=== PATIENT | male | born 1960 | race Caucasian/White ===

== ENCOUNTER → 2017-10-28 01:08 | Outpatient (CLI) | payer OTHER, SELFPAY ==
[2017-10-28 07:35] LABS: CREATININE 1.04 mg/dL (0.70-1.30)
[2017-10-28] MEDS: Gadoterate meglumine 20 ML VIAL IVP (10:37)
--- NOTE | 2017-10-28 11:10 | DI.REPORT_ITS ---
SYMPTOMS/DIAGNOSIS: RT CN VII DYSFUNCTION, R25.3, FASCICULATIONS RT EYE BRAIN MRI: Without and with contrast enhanced brain MRI was performed. T 2 sagittal, T 2 axial and axial diffusion and T 2 FLAIR axial T 1 axial, T 1 axial 3 mm pre and T 1 coronal 3 mm pre and T 1 coronal post and T 1 axial post and T 1 3 mm axial post and T 1 3 mm coronal pulse sequences were performed. No signal abnormality is demonstrated in the brain. There is no evidence of a hemorrhage or mass and nothing to suggest an infarct. No regions of restricted diffuse are apparent. The ventricles are normal with incidental note made of a cavum vergae. There are no regions of contrast enhancement. As visualized the brain stem appears intact. There is no demonstrated sinus or mastoid air cell pathology. The orbital contents appear normal. SUMMARY: A without and with contrast enhanced brain MRI is within normal limits.
== END ==
PROVIDERS: PCP Emergency Medicine; Visit Provider Psychiatry & Neurology Neurology
DX: G51.8 Other disorders of facial nerve (principal); R25.3 Fasciculation; Z13.89 Encounter for screening for other disorder
CPT/HCPCS: 36415; 70553; 82565

== ENCOUNTER 2018-05-31 02:14 | Outpatient (CLI) | payer OTHER, SELFPAY ==
[2018-05-31 11:20] LABS: Cholesterol 203 mg/dL (50-200); HDL Cholesterol 42 mg/dL (40-60); LDL CHOLESTEROL 139 mg/dL (<100); Triglyceride 101 mg/dL (30-150)
== END 2018-05-31 02:34 ==
PROVIDERS: PCP Emergency Medicine; Visit Provider Emergency Medicine
DX: Z00.00 Encounter for general adult medical examination without abnormal findings (principal); Z12.5 Encounter for screening for malignant neoplasm of prostate; Z13.220 Encounter for screening for lipoid disorders
CPT/HCPCS: 36415; 80061; 83721; 84153

== ENCOUNTER → 2018-12-31 10:22 | Outpatient (BNVA) | payer OTHER, SELFPAY | PROVIDERS: PCP Emergency Medicine; Referring Provider Emergency Medicine; Visit Provider Physical Therapy Assistant | DX: Z12.11 Encounter for screening for malignant neoplasm of colon (principal); Z86.010 Personal history of colon polyps ==

== ENCOUNTER 2019-01-24 12:07 | Day surgery (SDC) | payer OTHER, SELFPAY ==
--- NOTE | 2019-01-24 06:56 | W.UPDATEHP ---
Date of service: 01/24/19 Time of Service: 12:07 Updated H&P Refer to Most Recent Clinic Note/H&P Dated: 12/31/18 H&P was reviewed,patient examined No change has occured in patient's condition since last H&P completed
--- NOTE | 2019-01-24 06:56 | W.COLOREPORT ---
Date of service: 01/24/19 Time of Service: 12:55 Colonoscopy Report Date of procedure: 01/24/19 Pre-op diagnosis general: Hx of colon polyps Post-op diagnosis procedure note: same (and polyps, diverticulosis) Procedure: Colonoscopy with polypectomy Surgeon: Lexie Iverson Anesthesia proc note operative: other (General/ ASA 2/Sd Suarez, KATHLEEN) Estimated blood loss (mL): 5 Pathology: other (Ascending polyp, transverse polyp x2, rectal polyp) Complications: None Disposition: same day Indications: The patient is here for Colonoscopy pre-op. His last screening was in 2013 and was remarkable for tubular adenoma x 2. He has no family history of colon cancer. He has not had any bowel habit changes. -Discussed colonoscopy bowel prep as well as the procedure. Discussed possible complications of the procedure to include bleeding, pain, perforation, missed small lesion/polyp, sore throat, aspiration and adverse reaction to the medications. Questions were answered to patient?s satisfaction. No guarantees were implied or given. Prep: Miralax/Dulcolax Procedure Start Time: 12:55 Procedure End Time: 13:21 Retraction Time: 23 minutes Findings: 4 small < 10 mm polyps removed with cold forceps Mild dievrticulosis noted as well Procedure Description: After informed consent was obtained the patient was taken to the procedure room and placed in a left decubitous position. Monitors were applied and a time out was done. The patients name, date of , procedure, allergies to medications and metal in their body was reviewed. The patient was then sedated. Once sedated and comfortable a rectal exam was done. External exam was normal. Internal exam revealed a normal sphincter tone and no palpable masses. The prostate felt smooth and normal in size. The scope was then introduced and retro-flexed. No internal hemorrhoids, masses or polyps were identified on retro-felexion. The scope was then advanced to the cecum without difficulty. The TI and appendiceal orifice were identified. The prep was adequate. The scope was then slowly retracted over 23 minutes back into the rectum. Polyps were removed with cold forceps in the ascending colon x1, transverse colon x2 and rectum x1. There was mild dievrticulosis noted of the descending and sigmoid colon. The scope was removed and the patient was woken up and taken back to Same day surgery in stable condition. The patient tolerated the procedure well and there were no immediate complications. Follow up: The patient should follow up in 3-5 years unless they develop changes in bowel habits or other new gastrointestinal complaints.
--- NOTE | 2019-01-24 06:57 | W.PM.DSUDISC ---
Discharge Plan Disposition Patient Disposition: HOME Condition: Good Discharge Details Reason For Visit: Colonoscopy / Hx of polyps Attending Provider: Lexie Iverson Primary Care Provider: Luan Clark Home Meds and New Rx's Prescriptions: Continued lorazepam [Ativan] 1 mg tablet 1 mg PO HS PRN (Reason: sleep) Qty: 90 RF: 3 calcium-vitamin D3-vitamin K [Viactiv] 1 EACH tablet,chewable 1 ea PO BID RF: 0 Fiber Gummies (with chromium) 1 EACH tablet,chewable 2 ea PO DAILY RF: 0 multivitamin 1 EACH capsule 1 ea PO DAILY RF: 0 Ibuprofen [Motrin Ib] 200 MG tablet 600 mg PO Q6H 5 Days Qty: 60 RF: 0 meloxicam 15 MG tablet 15 mg PO DAILY PRNRF: 0 acetaminophen [Tylenol Extra Strength] 500 MG tablet 1,000 mg PO DAILY PRNRF: 0 Discontinued polyethylene glycol 3350 17 gram/dose powder 238 g PO ONCE Qty: 238 RF: 0 bisacodyl [Dulcolax (bisacodyl)] 5 mg tablet,delayed release (DR/EC) 5 mg PO ONCE Qty: 4 RF: 0 Discharge Instructions Instructions: Colonoscopy (DC), Colorectal Polyps (DC) Additional Instructions: Findings: 4 polyps and mild diverticulosis Follow up: 3-5 years Please call if you develop: fevers >101.5 Nausea or Vomiting Abdominal pain that is not transient DAY SURGERY UNIT POST ENDOSCOPY INSTRUCTIONS 1. Because there will be medication in your system for the next 24 hours, you may feel a little sleepy. Your coordination will be affected. Therefore: a. Do not drive or operate dangerous equipment for 24 hours. b. Do not drink alcohol beverages for 24 hours (not even beer). c. Plan to go home and rest for the day. 2. Generally there are no restrictions on your activity after a day or so has gone by, but you may feel a bit fatigued for a few days. 3 After you arrive home you may have a light meal and return to a normal diet as you can tolerate it without feeling sick to your stomach. 4. After surgery, you may feel pain or discomfort. This should be only transient, but if it persists please contact your doctor. 5. If there are any questions regarding the findings of your procedure, please feel free to contact your doctor. 6. If you are unable to contact your doctor with a problem, contact the hospital at [phone]. 4. Continue all your regular medications unless directed otherwise. I understand the above instructions and have no questions. Signature of Patient or Responsible Adult Escort Date/Time Name of Responsible Adult Escort Signature of Nurse Date/Time Activity:: Activity as Tolerated Diet:: High Fiebr diet Discharge Orders Discharge Orders: Discharge Order (Routine); Ordered 01/24/19 Ordered By: Lexie Iverson DS: Diagnosis Discharge Diagnosis (1) Hx of colonoscopy: Status: Chronic (2) Colorectal polyps: Status: Acute
--- NOTE | 2019-01-24 12:07 | HPE_ITS ---
Date of service: 01/24/19 Time of Service: 12:07 Updated H&P Refer to Most Recent Clinic Note/H&P Dated: 12/31/18 H&P was reviewed,patient examined No change has occured in patient's condition since last H&P completed cc: Dictated by: JEANNINE MOSLEY MD Dictated: 01/24/19Time: 655 <Electronically signed by Lexie Mosley M.D.> Date: 03/26/18 120 Date: Date: Transcribed Date: 01/24/19 Transcribed Time: 655By: ROMELIA
[2019-01-24 12:32] VITALS: BP 124/93; PULSE 98; RESP 18; TEMP 35.7; O2SAT 94
[2019-01-24] MEDS: Lactated Ringers 1,000 ML 80 ML IV (12:40)
--- NOTE | 2019-01-24 13:07 | BOWEL_PTH ---
PATIENT: Esau Quiros LOC: [facility] U#:[id number] AGE/SX: 58/M ROOM: RE01/24/[address]: Lexie Iverson MD : [id number] BED: DIS: 01/24/2019 SPEC #: [id number] RECD: 01/24/19 18:27 STATUS: MP RE #: [id number] ISAMAR: 01/24/19 13:[address]: Lexie Iverson DEPT: Surgical Specimen RECD BY: Bia Aguirre ENTERED: 01/24/19 18:28 SP TYPE: Bowel OTHR DR: Luan Clark DO Tissues: 1 - BIOPSY BOWEL 2 - BIOPSY BOWEL 3 - BIOPSY BOWEL Procedures: GROSS AND MICRO LEVEL 4 Comments: [id number]
[2019-01-24 14:00] VITALS: BP 119/81; PULSE 84; RESP 16; TEMP 36.2; O2SAT 96
== END 2019-01-24 14:55 | disposition home or self-care (01) ==
LOC: SUR 12:07
PROVIDERS: PCP Emergency Medicine; Visit Provider Surgery
PROC: 0DJD8ZZ Inspection of Lower Intestinal Tract, Via Natural or Artificial Opening Endoscopic (ICD-10-PCS; CPT 45378; principal; 2019-01-24 12:15)
DX: Z12.11 Encounter for screening for malignant neoplasm of colon (principal); Z86.010 Personal history of colon polyps; K57.30 Diverticulosis of large intestine without perforation or abscess without bleeding; D12.2 Benign neoplasm of ascending colon; D12.3 Benign neoplasm of transverse colon; K63.89 Other specified diseases of intestine; I10 Essential (primary) hypertension
CPT/HCPCS: 45380; 88305; J2250; J3010

== ENCOUNTER 2021-08-26 03:53 | Outpatient (CLI) | payer OTHER, SELFPAY ==
[2021-08-26 15:31] LABS: ALT 42 U/L (16-63); AST 29 U/L (15-37); Alkaline Phosphatase 100 U/L (46-116); Anion Gap 8.3 mmol/L (3-11); BUN 14 mg/dL (7-18); Bilirubin, Total 0.6 mg/dL (0.2-1.0); CO2 28.7 mmol/L (21.0-32.0); Calcium 8.4 mg/dL (8.5-10.1); Calculated LDL 104 mg/dL (<100); Chloride 104 mmol/L (98-107); Cholesterol 182 mg/dL (<200); Glucose 108 mg/dL (74-106); HDL Cholesterol 39 mg/dL (40-60); Potassium 3.6 mmol/L (3.5-5.1); Sodium 141 mmol/L (136-145); Total Protein 7.6 g/dL (6.4-8.2); Triglyceride 198 mg/dL (<150)
== END 2021-08-26 03:54 | disposition home or self-care (01) ==
PROVIDERS: PCP Nurse Practitioner Family; Visit Provider Nurse Practitioner Family
DX: I10 Essential (primary) hypertension (principal); E78.6 Lipoprotein deficiency
CPT/HCPCS: 36415; 80053; 80061

== ENCOUNTER → 2021-09-25 13:56 | Outpatient (BNVA) | payer OTHER, SELFPAY | PROVIDERS: PCP Nurse Practitioner Family; Referring Provider Nurse Practitioner Family; Visit Provider Surgery | DX: D17.9 Benign lipomatous neoplasm, unspecified (principal) | CPT/HCPCS: 99214 ==

== ENCOUNTER 2021-10-29 02:55 | Outpatient (CLI) | payer OTHER, SELFPAY ==
[2021-10-29 12:50] LABS: Source Nasal/Nares
[2021-10-29 15:19] LABS: COVID-19 PCR Negative (Negative)
== END 2021-10-29 02:56 | disposition home or self-care (01) ==
LOC: LBO 02:55
PROVIDERS: PCP Nurse Practitioner Family; Visit Provider Surgery
DX: Z01.818 Encounter for other preprocedural examination (principal); Z20.822 Contact with and (suspected) exposure to COVID-19
CPT/HCPCS: 87635

== ENCOUNTER 2021-11-01 07:18 | Day surgery (SDC) | payer OTHER, SELFPAY ==
--- NOTE | 2021-11-01 05:29 | HPE_ITS ---
Date of service: 11/01/21 Time of Service: 08:53 Assessment and Plan Assessment and plan (1) Lipoma: Status: Acute Assessment and plan: Proceed with excision of back lipoma History of Present Illness History of Present Illness Chief Complaint: lump on his back Narrative: I was able to see Boubacar in the office today with a chief complaint of a mass on his back.? He says it is the same in character to a lipoma that he had previously excised several years ago.? His first noticed this several months ago.? It has grown a little bit in size, but is not tender, and has not caused him any other problems. Review of Systems Constitutional Constitutional: Reports system reviewed and no additional complaints, except as documented Cardiovascular Cardiovascular: Reports system reviewed and no additional complaints, except as documented Respiratory Respiratory: Reports system reviewed and no additional complaints, except as documented Gastrointestinal Gastrointestinal: Reports system reviewed and no additional complaints, except as documented Musculoskeletal Musculoskeletal: Reports system reviewed and no additional complaints, except as documented Neurologic Neurologic: Reports system reviewed and no additional complaints, except as documented Hematologic/Lymphatic Hematologic/Lymphatic: Reports system reviewed and no additional complaints, except as documented PFSH All Active Problems History of tobacco use (Chronic) Quit 2005 Low HDL (under 40) (Chronic 12/06/13) Tubular adenoma of colon (Chronic) 11/07/13 X 2 Hx of colonoscopy (Chronic ~01/24/19) 01/18 - tubular adenoma x3 2013-Tubular adenoma Colorectal polyps (Acute) Essential hypertension (Acute 03/08/13) Lipoma (Acute) Insomnia (Acute) Obesity (BMI 30.0-34.9) (Acute) Medical History History of tobacco use Hx of essential hypertension Surgical History History of skin cancer removed from behind left ear Hx of sebaceous cyst Excision x4 S/P right knee arthroscopy Family History Mother Alcohol abuse Depression Father Diabetes Essential hypertension Neoplasm COLON Alcohol abuse Brother Diabetes Essential hypertension Grandfather Heart disease ASHD Grandfather Heart disease Grandmother Neoplasm LUNG Grandmother Neoplasm BREAST Social History Smoking/Tobacco Use Status: Former Tobacco Use tobacco type: smokeless tobacco Quit Date: 04/30/05 Tobacco: How many years used: 14 Second Hand Exposure: Yes Smoking risk assessment performed?: Yes Alcohol Intake: current Alcohol Intake frequency: a few times a week Alcohol type: beer Details: 2-3 times per week Drug use: Never Substance use type: does not use Caregiver/Support person: No Household members: spouse Housing: house Communication Needs: Corrective Lenses Do you need help understanding health information?: Rarely 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 [employer] Pets and animals: Yes Pets and animals: dog(s) Sexually active: Yes Do you think of yourself as: straight/heterosexual Current gender identity: male What is your relationship status?: How often do you talk on the phone with friends or family?: three or more times per week How often do you get together with friends or relatives?: once per week How often do you attend voodoo or holiness services?: 4 or more times per year Do you belong to any clubs or organized social groups?: yes Panel score (0-1 are the most socially isolated patients): 4 What type of physical activity do you participate in: walking and other Details: [place] bike Duration: 30-45 minutes/day Frequency: 3-4 times per week Kathy/Yazidism: Confucianism Special kathy needs: No Seatbelt use: always Helmet use: Yes Helmet use: always Drive intox or ride w/intox wrecking car driver: No Do you feel safe at home: Yes Do you feel safe in your relationship?: Yes Victim of physical abuse: No Victim of emotional abuse: No Victim of sexual abuse: No Would you like helpful sources: No Meds Allergies and Home Medications Allergies Allergy/AdvReac Type Severity Reaction Status Date / Time No Known Allergies Allergy Verified 10/31/21 12:33 Home Medications Medication Instructions Recorded Confirmed Type multivitamin 1 ea PO DAILY 11/07/13 11/01/21 History acetaminophen 500 mg tablet 1,000 mg PO DAILY PRN 04/09/17 11/01/21 History (Tylenol Extra Strength) Ibuprofen [Motrin Ib] 600 mg PO Q6H 5 days #60 tabs 09/20/17 11/01/21 Rx meloxicam 15 mg tablet 15 mg PO DAILY PRN joint pain #30 01/06/20 11/01/21 Rx tabs lorazepam 1 mg tablet (Ativan) 1 mg PO HS PRN sleep #90 tabs 08/23/21 11/01/21 Rx amlodipine 10 mg tablet 10 mg PO HS 10/31/21 11/01/21 History Exam Const General: cooperative, healthy appearing and comfortable Orientation: awake and oriented x3 Eyes General: appearance normal, both eyes and all related structures Conjunctivae: conjunctivae normal Sclera: sclerae normal Resp Effort & Inspection: normal respiratory effort and able to speak in complete sentences Cardio Jugular venous pressure: no JVD Rate: regular rate GI Inspection: non-distended Palpation: soft, no guarding, no hernias and nontender Auscultation: normal bowel sounds Skin General skin exam: normal turgor Neuro General: patient alert, patient awake and patient oriented x3 Cognition: normal cognition Extrem Right lower extremity: no edema Left lower extremity: no edema
--- NOTE | 2021-11-01 05:30 | W.PM.DSUDISC ---
Discharge Plan Disposition Patient Disposition: HOME Condition: Good Discharge Details Reason For Visit: excision of back epidermal inclusion cyst Attending Provider: Ryder Gamino Primary Care Provider: Tano Jo Home Meds and New Rx's Prescriptions: Continued meloxicam 15 mg tablet 15 mg PO DAILY PRN (Reason: joint pain) Qty: 30 4RF lorazepam [Ativan] 1 mg tablet 1 mg PO HS PRN (Reason: sleep) Qty: 90 3RF multivitamin 1 EACH capsule 1 ea PO DAILY Ibuprofen [Motrin Ib] 200 MG tablet 600 mg PO Q6H 5 Days Qty: 60 0RF amlodipine 10 mg tablet 10 mg PO HS acetaminophen [Tylenol Extra Strength] 500 MG tablet 1,000 mg PO DAILY PRN Discharge Instructions Instructions: Epidermal Inclusion Cysts (GEN) Additional Instructions: 1. Resume all of your medications. 2. Okay to use tylenol and ibuprofen over the counter as needed. 3. Leave bandage in place for 24 hours, then remove. 4. Shower with warm soapy water. Pat dry. Use a bandaid if needed to protect your clothing. 5. No soaking or tub baths until I see you in the office. 6. No heavy lifting until I see you in the office. 7.Call the office (or go directly to the emergency room after hours) if you notice any of the following: Develop chills (warm to touch), or if you have a thermometer and your temperature is above 101 Difficulty breathing or difficultly swallowing Persistent vomiting Any bleeding ? exceeding one tablespoon 8. Call your physician if the site where your intravenous was started becomes red, swollen, painful, and warm to touch. Referrals: Ryder Gamino MD [ [facility] STAFF PHYSICIAN] - Activity:: Activity as Tolerated Remove Dressings/Wound Care:: 24 hours Shower/Bathe:: 24 hours Diet:: As Tolerated DS: Diagnosis Discharge Diagnosis (1) Epidermal inclusion cyst: Status: Acute Asessment and Plan: Excision and linear closure of back epidermal inclusion cyst
--- NOTE | 2021-11-01 05:52 | W.PM.OP ---
Date of service: 11/01/21 Time of Service: 10:11 Operative Note Operative Note DATE OF PROCEDURE: 11/01/21 PRE-OP DIAGNOSIS: Lipoma POST-OP DIAGNOSIS: other (Epidermal inclusion cyst) PROCEDURE: excision of epidermal inclusion cyst from back SURGEON: Ryder Gamino Refer to Anesthesia Record ESTIMATED BLOOD LOSS: 10 PATHOLOGY: none sent COMPLICATIONS: None Patient was transported to: same day Patient's condition: stable Indications: Boubacar has a chief complaint of a mass on his back.? He says it is the same in character to a lipoma that he had previously excised several years ago.? His first noticed this several months ago.? It has grown a little bit in size, but is not tender, and has not caused him any other problems. Procedure Description: I began by prepping and draping the lump on his back. Next, using sterile technique, I administered local anesthetic with lidocaine to establish a generous field block. I incised the skin overlying the mass with a 15 blade scalpel. I dissected down through all layers of the skin using sharp technique. Gentle pressure was used to assist with hemostasis. The covering appeared consistent with an epidermal inclusion cyst. I used sharp technique for circumferential dissection around the mass and delivered. Next, I held some gentle pressure to assist with hemostasis. I then carefully examined the wound. It was clean, and there was no signs of bleeding. I gently irrigated the surgical site and approximated the the skin with interrupted Prolene stitches. The final incision site was approximately 3 cm long by 0.5 cm deep
[2021-11-01 07:38] VITALS: BP 130/95; PULSE 74; RESP 16; TEMP 36.6; O2SAT 99
--- NOTE | 2021-11-01 08:08 | W.ANESPRE ---
General Info Date of Service Date Performed: 11/01/21 Height: 5 ft 8 in Weight: 97.069 kg Body Mass Index (BMI): 32.5 Surgical Procedure: Operation Date: 11/01/21 09:10 Proposed Procedure Side Surgeon p Excision Lipoma Back Right Ryder Gamino MD Meds Allergies and Home Medications Allergies Allergy/AdvReac Type Severity Reaction Status Date / Time No Known Allergies Allergy Verified 10/31/21 12:33 Home Medication Medication Instructions Recorded multivitamin 1 ea PO DAILY 11/07/13 acetaminophen 500 mg tablet 1,000 mg PO DAILY PRN 04/09/17 (Tylenol Extra Strength) Ibuprofen [Motrin Ib] 600 mg PO Q6H 5 days #60 tabs 09/20/17 meloxicam 15 mg tablet 15 mg PO DAILY PRN joint pain #30 01/06/20 tabs lorazepam 1 mg tablet (Ativan) 1 mg PO HS PRN sleep #90 tabs 08/23/21 amlodipine 10 mg tablet 10 mg PO HS 10/31/21 Current Visit Medications: Current Medications Generic Name Dose Route Start Last Admin Trade Name Micq PRN Reason Stop Dose Admin Acetaminophen 1,000 mg 11/01/21 06:00 Acetaminophen 500 Mg Tab PO 11/01/21 16:00 PREOP MING Celecoxib 200 mg 11/01/21 06:00 Celecoxib 200 Mg Cap PO 11/01/21 16:00 PREOP MING Gabapentin 300 mg 11/01/21 06:00 Gabapentin 300 Mg Cap PO 11/01/21 16:00 PREOP MING Ringer's Solution 1,000 mls @ 80 mls/hr 11/01/21 06:00 IV 11/01/21 16:00 INFUSION [facility] Cefazolin Sodium/Dextrose 2 gm in 50 mls @ 100 mls/hr 11/01/21 06:00 Ancef Duplex IVPB 11/01/21 16:00 PREOP MING IV Miscellaneous Supplies 1 each 11/01/21 06:00 Iv Access IV 11/01/21 16:00 DIRECTED MING Sodium Chloride 0 ml 11/01/21 06:00 Normal Saline Flush 10 Ml Syr IV 11/01/21 16:00 PRN PRN Sodium Chloride 0 ml 11/01/21 06:00 Normal Saline 10 Ml Vial IJ 11/01/21 16:00 DIRECTED PRN Sterile Water 0 ml 11/01/21 06:00 Water,Injection,Sterile 10 Ml Vial IJ 11/01/21 16:00 DIRECTED PRN PFSH Active Problems Active Problems: Problem Status Onset Code History of tobacco use Z87.891 Low HDL (under 40) 12/06/13 E78.6 Tubular adenoma of colon D12.6 Hx of colonoscopy ~01/24/19 Z98.890 Colorectal polyps K63.5 Essential hypertension 03/08/13 I10 Lipoma D17.9 Insomnia G47.00 Obesity (BMI 30.0-34.9) E66.9 Medical History Medical History History of tobacco use Hx of essential hypertension Surgical History Surgical History History of skin cancer removed from behind left ear Hx of sebaceous cyst Excision x4 S/P right knee arthroscopy Tobacco Smoking/Tobacco Use Status: Former Tobacco Use Passive smoking exposure: Yes Second hand exposure: Yes Alcohol Alcohol Intake: current Alcohol intake frequency: a few times a week Alcohol type: beer Details: 2-3 times per week Substance Use Substance use: Never Substance use type: does not use Vital Signs and Lab Results Vital Signs Most Recent Vital Signs in EMR: Most Recent Vital Signs Temp Pulse Resp BP Pulse Ox 36.6 C 74 16 130/95 H 99 11/01/21 07:38 11/01/21 07:38 11/01/21 07:38 11/01/21 07:38 11/01/21 07:38 Lab Results Blood Type / Crossmatch: No Data to Display Complete Blood Count: No Data to Display Complete Metabolic Panel: No Data to Display Liver Function Panel: No Data to Display Coagulation Panel: No Data to Display Cardiac Panel: No Data to Display Arterial Blood Gas: No Data to Display Venous Blood Gas: No Data to Display Pancreas Panel: No Data to Display Thyroid Panel: No Data to Display Infectious Disease: Coronavirus (COVID-19)(PCR) Negative (Negative) 10/29/21 07:56 Coronavirus 2019 Source Nasal/Nares 10/29/21 07:56 Blood Cultures: No Data to Display Toxicology Panel: No Data to Display Anesthesia Assessment and Plan Anesthesia History Personal History: No History of Anesthesia Complications Family History: No Family History of Anesthesia Complications Exercise Tolerance Exercise Tolerance: Metabolic Equivalents>4 Pertinent Negatives Pertinent Negatives: No Symptoms of GERD (Well controlled), No Major Cardiovascular Symptoms or Complaints, No Major Pulmonary Symptoms or Complaints and No History of CVA/TIA Cardiac & Pulmonary Exam Cardiac Exam: Normal S1/S2 Heart Sounds Pulmonary Exam: Clear Bilateral Breath Sounds Implantable Cardiac Device Does patient have a Pacemaker or an ICD?: No Airway Exam Known Difficult Airway: No Mallampati Class: 2 Mouth Opening: Narrow (< 3cm) Thyromental Distance: Greater than 3 cm Neck Range of Motion: Full ROM Neck Circumference: Normal Teeth Condition: Normal Dentition ASA Classification ASA Score: ASA 2 Emergency Case?: No NPO Status NPO Status: NPO Clears >2 hours, Solids >8 hours Anesthesia Plan Resuscitation Status: Full Code Anesthesia Technique: General Anesthesia Airway Planned: Natural Airway Monitors Used: Standard Monitors
[2021-11-01] MEDS: Gabapentin 300 MG CAP PO (08:24)
[2021-11-01] MEDS: Celecoxib 200 MG CAP PO (08:24)
[2021-11-01] MEDS: Lactated Ringers 1,000 ML 80 ML IV (08:24)
[2021-11-01] MEDS: Acetaminophen 500 MG TAB 1000 MG PO (08:24)
[2021-11-01] MEDS: Lidocaine 1% Multi-Dose W/EPI 1/100,000 50 ML VIAL (08:51)
[2021-11-01 09:26] VITALS: BMI 32.5
[2021-11-01] MEDS: ceFAZolin 2 GM/50 ML BAG IVPB (09:47)
[2021-11-01 10:10] VITALS: BP 115/79; PULSE 80; RESP 14; TEMP 36.1; O2SAT 95
--- NOTE | 2021-11-01 10:29 | DSE_ITS ---
DS: Diagnosis Discharge Diagnosis (1) Epidermal inclusion cyst: Status: Acute Discharge Plan Disposition Patient Disposition: HOME Condition: Good Discharge Details Reason For Visit: excision of back epidermal inclusion cyst Attending Provider: Ryder Gamino Primary Care Provider: Tano Jo Home Meds and New Rx's Prescriptions: Continued meloxicam 15 mg tablet 15 mg PO DAILY PRN (Reason: joint pain) Qty: 30 4RF lorazepam [Ativan] 1 mg tablet 1 mg PO HS PRN (Reason: sleep) Qty: 90 3RF multivitamin 1 EACH capsule 1 ea PO DAILY Ibuprofen [Motrin Ib] 200 MG tablet 600 mg PO Q6H 5 Days Qty: 60 0RF amlodipine 10 mg tablet 10 mg PO HS acetaminophen [Tylenol Extra Strength] 500 MG tablet 1,000 mg PO DAILY PRN Discharge Instructions Instructions: Epidermal Inclusion Cysts (GEN) Additional Instructions: 1. Resume all of your medications. 2. Okay to use tylenol and ibuprofen over the counter as needed. 3. Leave bandage in place for 24 hours, then remove. 4. Shower with warm soapy water. Pat dry. Use a bandaid if needed to protect your clothing. 5. No soaking or tub baths until I see you in the office. 6. No heavy lifting until I see you in the office. 7.Call the office (or go directly to the emergency room after hours) if you notice any of the following: Develop chills (warm to touch), or if you have a thermometer and your temperature is above 101 Difficulty breathing or difficultly swallowing Persistent vomiting Any bleeding ? exceeding one tablespoon 8. Call your physician if the site where your intravenous was started becomes red, swollen, painful, and warm to touch. Referrals: Ryder Gamino MD [ [facility] STAFF PHYSICIAN] - Activity:: Activity as Tolerated Remove Dressings/Wound Care:: 24 hours Shower/Bathe:: 24 hours Diet:: As Tolerated Discharge Orders Discharge Orders: Discharge Order (Routine); Ordered 11/01/21 Ordered By: Ryder Gamino DS: Data Vitals/I&O Vitals and I&O: Vital Signs Temperature 97.0 F L 11/01/21 10:14 Pulse 80 11/01/21 10:14 Pulse Rhythm Regular 11/01/21 07:38 Respiratory Rate 14 11/01/21 10:14 Blood Pressure 115/79 11/01/21 10:14 Pulse Oximetry 95 11/01/21 10:14 Oxygen Delivery Method Room Air 11/01/21 10:14 Oxygen Flow Rate 0 11/01/21 07:38 Pain Level 0 11/01/21 10:14 Intake & Output 10/31/21 10/31/21 11/01/21 11:59 23:59 11:59 Intake Total 300 / 300 Balance 300 / 300 Weight 214 lb 214 lb Intake: IV 300 / 300 Other: Emesis Description None PFSH All Active Problems (Updated 11/01/21 @ 10:10 by Ryder Gamino MD) Epidermal inclusion cyst (Acute) History of tobacco use (Chronic) Quit 2005 Low HDL (under 40) (Chronic 12/06/13) Tubular adenoma of colon (Chronic) 11/07/13 X 2 Hx of colonoscopy (Chronic ~01/24/19) 01/18 - tubular adenoma x3 2013-Tubular adenoma Colorectal polyps (Acute) Essential hypertension (Acute 03/08/13) Lipoma (Acute) Insomnia (Acute) Obesity (BMI 30.0-34.9) (Acute) Medical History History of tobacco use Hx of essential hypertension Surgical History History of skin cancer removed from behind left ear Hx of sebaceous cyst Excision x4 S/P right knee arthroscopy Family History Mother Alcohol abuse Depression Father Diabetes Essential hypertension Neoplasm COLON Alcohol abuse Brother Diabetes Essential hypertension Grandfather Heart disease ASHD Grandfather Heart disease Grandmother Neoplasm LUNG Grandmother Neoplasm BREAST Social History Smoking/Tobacco Use Status: Former Tobacco Use tobacco type: smokeless tobacco Quit Date: 04/30/05 Tobacco: How many years used: 14 Second Hand Exposure: Yes Smoking risk assessment performed?: Yes Alcohol Intake: current Alcohol Intake frequency: a few times a week Alcohol type: beer Details: 2-3 times per week Drug use: Never Substance use type: does not use Caregiver/Support person: No Household members: spouse Housing: house Communication Needs: Corrective Lenses Do you need help understanding health information?: Rarely 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 [employer] Pets and animals: Yes Pets and animals: dog(s) Sexually active: Yes Do you think of yourself as: straight/heterosexual Current gender identity: male What is your relationship status?: How often do you talk on the phone with friends or family?: three or more times per week How often do you get together with friends or relatives?: once per week How often do you attend hindu or tenriism services?: 4 or more times per year Do you belong to any clubs or organized social groups?: yes Panel score (0-1 are the most socially isolated patients): 4 What type of physical activity do you participate in: walking and other Details: [place] bike Duration: 30-45 minutes/day Frequency: 3-4 times per week Kathy/Confucianist: Taoist Special kathy needs: No Seatbelt use: always Helmet use: Yes Helmet use: always Drive intox or ride w/intox local bulk driver: No Do you feel safe at home: Yes Do you feel safe in your relationship?: Yes Victim of physical abuse: No Victim of emotional abuse: No Victim of sexual abuse: No Would you like helpful sources: No
[2021-11-01 10:40] VITALS: BP 126/89; PULSE 67; RESP 14; TEMP 36; O2SAT 97
--- NOTE | 2021-11-01 11:16 | W.ANESPOSTOP ---
Postoperative Evaluation Date, Time and Location Date Performed: 11/01/21 Time Performed: 10:14 Patient Location: Day Surgery Unit Vital Signs Most Recent Imported Vital Signs: Most Recent Vital Signs Temp Pulse Resp BP Pulse Ox 36.1 C L 80 14 115/79 95 11/01/21 10:14 11/01/21 10:14 11/01/21 10:14 11/01/21 10:14 11/01/21 10:14 Pain Score Most Recent Pain Score: Most Recent Pain Score Pain Level 0 11/01/21 10:14 Assessment Mental Status: Awake (Alert & Oriented to Patient Baseline) Airway and Respiratory Function: Patent airway with normal (patient baseline) respiratory exam Cardiovascular Function: Hemodynamically Stable Hydration Status: Adequately Hydrated Nausea & Vomiting: No Nausea or Vomiting Pain: Pt. Denies Any Pain Peripheral Nerve Block: Patient did not receive a nerve block
== END 2021-11-01 12:00 | disposition home or self-care (01) ==
PROVIDERS: PCP Nurse Practitioner Family; Visit Provider Surgery
PROC: (CPT 11403; principal; 2021-11-01 09:00)
DX: L72.0 Epidermal cyst (principal); I10 Essential (primary) hypertension
CPT/HCPCS: 11403; J0690; J2704

== ENCOUNTER → 2021-11-11 08:26 | Outpatient (BNVA) | payer OTHER, SELFPAY | PROVIDERS: PCP Nurse Practitioner Family; Referring Provider Nurse Practitioner Family; Visit Provider Surgery | DX: L72.0 Epidermal cyst; Z48.02 Encounter for removal of sutures ==

== ENCOUNTER 2022-09-03 02:39 | Outpatient (CLI) | payer OTHER, SELFPAY ==
[2022-09-03 07:40] LABS: Abs Immature Grans 0.01 10^3/uL (0.0-0.06); Absolute Basophil Count 0.06 10^3/uL (0.0-0.2); Absolute Eosinophil Count 0.04 10^3/uL (0.0-0.7); Absolute Lymphocyte Count 1.45 10^3/uL (1.2-3.4); Absolute Monocyte Count 0.39 10^3/uL (0.1-0.8); Absolute Neutrophil Count 2.56 10^3/uL (1.2-6.7); Basophils % 1.3; Eosinophils % 0.9; HCT 47.8 % (40.0-50.0); HGB 16.4 g/dL (13.5-17.5); Immature Grans % 0.2; Lymphocytes % 32.2; MCH 31.1 pg (27.0-33.0); MCHC 34.3 % (32.0-36.0); MCV 91 fL (80-95); MPV 9.5 fL (8.0-11.0); Monocytes % 8.6; Neutrophils % 56.8; Platelet Count 271 10^3/uL (130-400); RBC 5.28 10^6/uL (4.36-5.78); RDW 11.6 % (11.8-14.1); RDW-SD 38.5 fL; WBC 4.51 10^3/uL (4.4-10.8)
[2022-09-03 08:32] LABS: Iron 55 ug/dL (65-175); Total Iron Binding Capacity 299 ug/dL (250-450)
[2022-09-03 08:56] LABS: Ferritin 71 ng/mL (26-388); TSH (W/Ref FT4) 1.36 uIU/mL (0.36-3.74); Vitamin B12 502 pg/mL (193-986)
[2022-09-04 10:23] LABS: Transferrin 251 mg/dL (201-352)
== END 2022-09-03 02:40 | disposition home or self-care (01) ==
LOC: LBO 02:40
PROVIDERS: PCP Nurse Practitioner Family; Visit Provider Nurse Practitioner Family
DX: R53.83 Other fatigue (principal)
CPT/HCPCS: 36415; 82607; 82728; 83540; 83550; 84443; 84466; 85025

== ENCOUNTER 2023-09-08 04:44 | Outpatient (CLI) | payer OTHER, SELFPAY ==
[2023-09-08 15:36] LABS: Hemoglobin A1C 5.5 % (<5.7)
[2023-09-08 16:30] LABS: Calculated LDL 75 mg/dL (<100); Cholesterol 158 mg/dL (<200); Estimated GFR 85.63 (mL/min/1.73m2); HDL Cholesterol 32 mg/dL (40-60); Triglyceride 255 mg/dL (<150)
== END 2023-09-08 04:45 | disposition home or self-care (01) ==
PROVIDERS: PCP Nurse Practitioner Family; Visit Provider Nurse Practitioner Family
DX: E78.5 Hyperlipidemia, unspecified (principal); I10 Essential (primary) hypertension; Z13.1 Encounter for screening for diabetes mellitus
CPT/HCPCS: 36415; 80061; 82565; 83036; 84132

== ENCOUNTER → 2023-12-22 14:26 | Outpatient (BNVA) | payer OTHER, SELFPAY | PROVIDERS: PCP Nurse Practitioner Family; Referring Provider Nurse Practitioner Family; Visit Provider Surgery | DX: Z12.11 Encounter for screening for malignant neoplasm of colon (principal); Z86.0100 Personal history of colon polyps, unspecified ==

== ENCOUNTER 2024-01-04 09:47 | Day surgery (SDC) | payer OTHER, SELFPAY ==
--- NOTE | 2024-01-03 11:18 | PDOC.DSDIS_ITS ---
Date of service: 01/04/24 Time of Service: 11:54 Discharge Plan Disposition Patient Disposition: Home Condition: Good Discharge Details Reason For Visit: screening colonoscopy Attending Provider: Ryder Gamino Primary Care Provider: Tano Jo Home Meds and New Rx's Prescriptions: Continued losartan 100 mg tablet 100 mg PO DAILY Qty: 90 3RF lorazepam [Ativan] 1 mg tablet 1 mg PO HS PRN (Reason: sleep) Qty: 60 2RF hydrochlorothiazide 12.5 mg tablet 12.5 mg PO DAILY Qty: 90 3RF sertraline 50 mg tablet 50 mg PO DAILY meloxicam 15 mg tablet 15 mg PO DAILY Qty: 90 0RF multivitamin 1 EACH capsule 1 ea PO DAILY Ibuprofen [Motrin Ib] 200 MG tablet 600 mg PO Q6H 5 Days Qty: 60 0RF acetaminophen [Tylenol Extra Strength] 500 MG tablet 1,000 mg PO DAILY PRN Discontinued polyethylene glycol 3350 17 gram/dose powder 238 g PO ONCE Qty: 238 0RF Rx Instructions: take per colonoscopy instructions bisacodyl [Dulcolax (bisacodyl)] 5 mg tablet,delayed release (DR/EC) 5 mg PO ONCE Qty: 4 0RF Rx Instructions: take per colonoscopy instructions Discharge Instructions Instructions: Colon polyps, Diverticulosis Additional Instructions: Boubacar, was great seeing you today, and I hope you are comfortable during the procedure. I did find and remove a single polyp today. It was quite small, and nothing at all to worry about. I will send it off for testing as polyps, different varieties, and the nature of this polyp will impact the timing of your next colonoscopy. Those results usually take about a week or 2 to get back, but once we have them, the office will be in touch with any other recommendations. Incidentally, he also have some diverticulosis. Diverticula are weak spots in the muscular part of the colon wall that causes inside lining to pooch outward. This great subtle pockets or pouches. On occasion, these can get infected or inflamed, and that typically is referred to as a flareup of diverticulitis. Hopefully, years never bother you. If you have any questions, or need anything, please do not hesitate to call, otherwise, we will be in touch once the p athology results are available. 1. If tolerated, consume a soft, low fiber diet for 1-2 days. 2[address] Do not drive, drink alcohol, operate machinery, make critical decisions, or do activities that require coordination or balance for 24 hours. 3. Because air was put into your colon during the procedure, expelling air from your rectum (passing gas or farting) is normal. 4. You may not have a bowel movement for 1-3 days because of the colonoscopy prep. This is normal. 5. Go directly to the emergency room if you notice any of the following: Develop chills (warm to touch), or if you have a thermometer and your temperature is above 101 Difficulty breathing or difficultly swallowing Persistent vomiting Severe abdominal pain, other than gas cramps Severe chest pain Black, tarry stools Any bleeding ? exceeding one tablespoon 6. Call your physician if the site where your intravenous was started becomes red, swollen, painful, and warm to touch. 7. Your physician has reviewed your pre-procedure medications. Please continue to take those medications as previously ordered. You will be given specific information/education regarding any changes to your medications before leaving. Activity:: Activity as Tolerated Diet:: As Tolerated Discharge Orders Discharge Orders: Discharge Order (Routine); Ordered 01/03/24 Ordered By: Ryder Gamino DS: Diagnosis Discharge Diagnosis (1) Encounter for screening colonoscopy: Status: Acute Asessment and Plan: Follow-up on polypectomy results
--- NOTE | 2024-01-03 11:19 | COLE_ITS ---
Date of service: 01/04/24 Time of Service: 11:56 Colonoscopy Report Date of procedure: 01/04/24 Pre-op diagnosis general: screening colonsocopy Post-op diagnosis procedure note: other (Colon polyps, diverticulosis) Procedure: colonoscopy with polypectomy Surgeon: Ryder Gamino Anesthesia Type: General:No Airway Estimated blood loss (mL): 5 Pathology: other (0.25 cm rectal polyp) Complications: None Disposition: same day Indications: Boubacar is a 63 year old man who needs his next screening colonsocopy Prep: Miralax/Dulcolax Procedure Start Time: 11:35 Procedure End Time: 11:50 Retraction Time: 8 Findings: Sigmoid diverticulosis, 0.25 cm rectal polyp Procedure Description: After the induction of anesthesia, and with the patient in left lateral decubitus position, I began by performing an external anorectal exam.? Perineum and skin were normal, as was the anal verge.? There was no evidence of external hemorrhoids.? Next, I performed a digital rectal exam.? I did not appreciate any abnormal findings.? Next, I advanced a colonoscope into the rectal vault.? I performed retroflexion.? This appeared normal.? Using insufflation, I then advanced the colonoscope beyond the rectal folds and into the sigmoid colon before advancing towards the cecum.? There is sigmoid diverticulosis.? The scope was noted to be in the cecum by identification of the ileocecal valve and appendiceal orifice.? I then began withdrawing the colonoscope using repeated irrigation as necessary for full evaluation of the colonic mucosa. ?Once the scope was withdrawn to the level of the rectum, great care was taken to examine portions of the rectal folds.? In the upper portion of the rectal vault is a 0.25 cm flat polyp. This was removed with cold forceps with minimal bleeding. Finally, the scope was withdrawn and the patient was brought to the same-day surgery recovery unit as the anesthetic wore off. ?The findings and instructions were shared with the patient prior to discharge. Mission Bowel Prep Mission Bowel Prep Right Colon: 3 Left Colon: 3 Transverse Colon: 3 Total Score: 9
[2024-01-04 10:17] VITALS: BP 150/95; PULSE 83; RESP 16; TEMP 36.3; O2SAT 96
[2024-01-04] MEDS: Normal Saline Flush 10 ML SYR IV (10:38)
--- NOTE | 2024-01-04 11:21 | W.ANESPRE ---
General Info Date of Service Date Performed: 01/04/24 Height: 5 ft 8 in Weight: 97.1 kg Body Mass Index (BMI): 32.5 Surgical Procedure: Operation Date: 01/04/24 11:20 Proposed Procedure Side Surgeon p Parag Gamino MD Meds Allergies and Home Medications Allergies Allergy/AdvReac Type Severity Reaction Status Date / Time No Known Allergies Allergy Verified 01/04/24 10:11 Home Medication ?Medication ?Instructions ?Recorded multivitamin 1 ea PO DAILY 11/07/13 acetaminophen 500 mg tablet 1,000 mg PO DAILY PRN 04/09/17 (Tylenol Extra Strength) Ibuprofen [Motrin Ib] 600 mg PO Q6H 5 days #60 tabs 09/20/17 losartan 100 mg tablet 100 mg PO DAILY #90 tabs 09/02/23 hydrochlorothiazide 12.5 mg tablet 12.5 mg PO DAILY #90 tabs 10/09/23 lorazepam 1 mg tablet (Ativan) 1 mg PO HS PRN sleep #60 tabs 10/09/23 meloxicam 15 mg tablet 15 mg PO DAILY joint pain #90 tabs 11/06/23 sertraline 50 mg tablet 50 mg PO DAILY 11/11/23 Current Visit Medications: Current Medications Generic Name Dose Route Start Last Admin Trade Name Freq PRN Reason Stop Dose Admin Ringer's Solution 1,000 mls @ 80 mls/hr 01/04/24 06:00 IV 01/04/24 23:59 INFUSION MING IV Miscellaneous Supplies 1 each 01/04/24 06:00 Iv Access IV 01/04/24 23:59 DIRECTED MING Ondansetron HCl 4 mg 01/03/24 11:20 Ondansetron 4 Mg/2 Ml Vial IVP 02/02/24 11:19 Q4H PRN PRN Nausea / Vomiting Sodium Chloride 0 ml 01/04/24 06:00 01/04/24 10:38 Normal Saline Flush 10 Ml Syr IV 01/04/24 23:59 10 ml PRN PRN Administration Sodium Chloride 0 ml 01/04/24 06:00 Normal Saline 10 Ml Vial IJ 01/04/24 23:59 DIRECTED PRN Sterile Water 0 ml 01/04/24 06:00 Water,Injection,Sterile 10 Ml Vial IJ 01/04/24 23:59 DIRECTED PRN PFSH Active Problems Active Problems: Problem Status Onset Code Encounter for screening colonoscopy Acute Z12.11 Right hip pain Acute M25.551 Hyperlipidemia Acute E78.5 Fatigue Acute R53.83 Epidermal inclusion cyst Acute L72.0 History of tobacco use Chronic Z87.891 Low HDL (under 40) Chronic 12/06/13 E78.6 Tubular adenoma of colon Chronic D12.6 Hx of colonoscopy Chronic ~01/24/19 Z98.890 Colorectal polyps Acute K63.5 Essential hypertension Acute 03/08/13 I10 Insomnia Acute G47.00 Obesity (BMI 30.0-34.9) Acute E66.9 Medical History Medical History History of tobacco use Hx of essential hypertension Surgical History Surgical History History of skin cancer removed from behind left ear Hx of sebaceous cyst Excision x4 S/P right knee arthroscopy Tobacco Smoking/Tobacco Use Status: Former Tobacco Use Smokeless tobacco user: chewing tobacco Passive smoking exposure: Yes Second hand exposure: Yes Alcohol Alcohol Intake: current Alcohol intake frequency: a few times a week Alcohol type: beer and hard liquor Details: 2-3 times per week Substance Use Substance use: Never Substance use type: does not use Vital Signs and Lab Results Vital Signs Most Recent Vital Signs in EMR: Most Recent Vital Signs Temp Pulse Resp BP Pulse Ox 36.3 C L 83 16 150/95 H 96 01/04/24 10:17 01/04/24 10:17 01/04/24 10:17 01/04/24 10:17 01/04/24 10:17 Lab Results Blood Type / Crossmatch: No Data to Display Complete Blood Count: No Data to Display Complete Metabolic Panel: No Data to Display Liver Function Panel: No Data to Display Coagulation Panel: No Data to Display Cardiac Panel: No Data to Display Arterial Blood Gas: No Data to Display Venous Blood Gas: No Data to Display Pancreas Panel: No Data to Display Thyroid Panel: No Data to Display Infectious Disease: No Data to Display Blood Cultures: No Data to Display Toxicology Panel: No Data to Display Anesthesia Assessment and Plan Anesthesia History Personal History: No History of Anesthesia Complications Family History: No Family History of Anesthesia Complications Exercise Tolerance Exercise Tolerance: Metabolic Equivalents>4 Pertinent Negatives Pertinent Negatives: No Symptoms of GERD, No Major Cardiovascular Symptoms or Complaints and No Major Pulmonary Symptoms or Complaints Cardiac & Pulmonary Exam Cardiac Exam: Normal S1/S2 Heart Sounds Pulmonary Exam: Clear Bilateral Breath Sounds Implantable Cardiac Device Does patient have a Pacemaker or an ICD?: No Airway Exam Known Difficult Airway: No Mallampati Class: 2 Mouth Opening: Narrow (< 3cm) Thyromental Distance: Greater than 3 cm Neck Range of Motion: Full ROM Neck Circumference: Normal Teeth Condition: Normal Dentition ASA Classification ASA Score: ASA 2 Emergency Case?: No NPO Status NPO Status: NPO Clears >2 hours, Solids >8 hours Anesthesia Plan Resuscitation Status: Full Code Anesthesia Technique: General Anesthesia Airway Planned: Natural Airway Monitors Used: Standard Monitors
[2024-01-04 11:23] VITALS: BMI 32.5
--- NOTE | 2024-01-04 11:37 | BOWEL_PTH ---
PATIENT: Esau Quiros LOC: [facility] U#:[id number] AGE/SX: 63/M ROOM: RE01/04/[address]: Ryder Gamino MD : 1960 BED: DIS: 01/04/2024 SPEC #: [id number] RECD: 01/04/24 12:58 STATUS: MP RE #: [id number] ISAMAR: 01/04/24 11:[address]: Ryder Gamino DEPT: Surgical Specimen RECD BY: Bia Aguirre ENTERED: 01/04/24 12:59 SP TYPE: Bowel OTHR DR: Tano Jo, PK Tissues: 1 - BIOPSY BOWEL Procedures: GROSS AND MICRO LEVEL 4 Comments: [id number]
[2024-01-04 11:55] VITALS: BP 107/84; PULSE 74; RESP 18; TEMP 36.5; O2SAT 94
[2024-01-04 12:21] VITALS: BP 123/79; PULSE 73; RESP 18; TEMP 36.5; O2SAT 96
--- NOTE | 2024-01-04 13:40 | W.ANESPOSTOP ---
Postoperative Evaluation Date, Time and Location Date Performed: 01/04/24 Time Performed: 12:05 Patient Location: Day Surgery Unit Vital Signs Most Recent Imported Vital Signs: Most Recent Vital Signs Temp Pulse Resp BP Pulse Ox 36.5 C 73 18 123/79 96 01/04/24 12:21 01/04/24 12:21 01/04/24 12:21 01/04/24 12:21 01/04/24 12:21 Pain Score Most Recent Pain Score: Most Recent Pain Score Pain Level 0 01/04/24 12:21 Assessment Mental Status: Awake (Alert & Oriented to Patient Baseline) Airway and Respiratory Function: Patent airway with normal (patient baseline) respiratory exam Cardiovascular Function: Hemodynamically Stable Hydration Status: Adequately Hydrated Nausea & Vomiting: No Nausea or Vomiting Pain: Pt. Denies Any Pain Peripheral Nerve Block: Patient did not receive a nerve block
== END 2024-01-04 12:45 | disposition home or self-care (01) ==
LOC: SUR 09:47
PROVIDERS: PCP Nurse Practitioner Family; Visit Provider Surgery
PROC: 0DJD8ZZ Inspection of Lower Intestinal Tract, Via Natural or Artificial Opening Endoscopic (ICD-10-PCS; CPT 45378; principal; 2024-01-04 11:15)
DX: Z12.11 Encounter for screening for malignant neoplasm of colon (principal); I10 Essential (primary) hypertension; D12.8 Benign neoplasm of rectum; K57.30 Diverticulosis of large intestine without perforation or abscess without bleeding
CPT/HCPCS: 45380; 88305; J2704

== ENCOUNTER 2024-10-03 03:23 | Outpatient (CLI) | payer OTHER, SELFPAY ==
[2024-10-03 15:19] LABS: Hemoglobin A1C 4.9 % (<5.7)
[2024-10-03 15:54] LABS: ALT 33 U/L (16-63); AST 24 U/L (15-37); Albumin 4.0 g/dL (3.4-5.0); Alkaline Phosphatase 98 U/L (46-116); Anion Gap 8.1 mmol/L (3-11); BUN 17 mg/dL (7-18); Bilirubin, Total 0.3 mg/dL (0.2-1.0); CO2 29.9 mmol/L (21.0-32.0); Calcium 8.9 mg/dL (8.5-10.1); Calculated LDL 115 mg/dL (<100); Chloride 107 mmol/L (98-107); Cholesterol 183 mg/dL (<200); Estimated GFR 96.57 (mL/min/1.73m2); Glucose 99 mg/dL (74-106); HDL Cholesterol 36 mg/dL (>or=40); Potassium 4.1 mmol/L (3.5-5.1); Sodium 145 mmol/L (136-145); Total Protein 7.3 g/dL (6.4-8.2); Triglyceride 163 mg/dL (<150)
[2024-10-03 23:03] LABS: PSA, Screening 0.6 ng/mL (<=4.5)
== END 2024-10-03 03:24 | disposition home or self-care (01) ==
LOC: LBO 03:23
PROVIDERS: PCP Nurse Practitioner Family; Visit Provider Nurse Practitioner Family
DX: Z12.5 Encounter for screening for malignant neoplasm of prostate (principal); I10 Essential (primary) hypertension; Z13.220 Encounter for screening for lipoid disorders; Z13.1 Encounter for screening for diabetes mellitus
CPT/HCPCS: 36415; 80053; 80061; 84153; 83036

== ENCOUNTER 2025-01-04 07:19 | Emergency (ER) | payer SELFPAY ==
--- NOTE | 2025-01-04 07:27 | W.ED.GENAD ---
Discharge Plan Disposition Patient Disposition: Home Discharge Details Clinical Impression: Left ankle sprain Primary Care Provider: Tano Jo ED Provider: Andriy Patel Home Meds and New Rx's Prescriptions: Continued sertraline 100 mg tablet 100 mg PO DAILY losartan 100 mg tablet 100 mg PO DAILY Qty: 90 3RF hydrochlorothiazide 12.5 mg tablet 12.5 mg PO DAILY Qty: 90 3RF lorazepam [Ativan] 1 mg tablet 1 mg PO HS PRN (Reason: sleep) Qty: 60 2RF meloxicam 15 mg tablet 15 mg PO DAILY Qty: 90 0RF multivitamin 1 EACH capsule 1 ea PO DAILY Ibuprofen [Motrin Ib] 200 MG tablet 600 mg PO Q6H 5 Days Qty: 60 0RF acetaminophen [Tylenol Extra Strength] 500 MG tablet 1,000 mg PO DAILY PRN Discharge Instructions Additional Instructions: You were seen in the emergency department for your ankle pain. Your x-rays showed no sign of any fractures. This was based on preliminary virtual radiology read. If our local radiologist see any discrepancies we will call you back. Please rest your ankle for the next several days. You may bear weight as tolerated using your crutches. If you develop worsening pain or cannot move your foot please return to the emergency department. Otherwise please follow-up as needed with your primary care provider. For your pain please take medications as follows: 1. Take acetaminophen (Tylenol), 1,000 mg (two 500 mg tabs) every 6 hours [2. Take ibuprofen (Advil), 400 mg every 6 hours.] Stand Alone Forms: Portal Information, Work Release Discharge Data Discharge Date/Time-TO BE ENTERED AT DEPARTURE: 01/04/25 08:53 HPI General Date/Time Provider Initiated Documentation: 01/04/25 07:27. HPI Narrative: MDM This is an overall quite well-appearing normothermic and not tachycardic 62-year-old male with left ankle pain concerning for sprain versus fracture for which he will undergo labs. No midfoot instability to suggest Lisfranc injury. No lateral foot tenderness to suggest Rhoades fracture. No proximal tibial tenderness to suggest Maisonneuve's injury. No history of axial loading to suggest increased risk for talar fracture. No erythema to suggest cellulitis. No fluctuance to suggest abscess. No fevers nor significant joint effusion to suggest septic joint. Left foot warm well-perfused with intact PT and DP pulses so I am not suspicious for any critical limb ischemia so I do not feel patient requires an angiogram. Will treat with ibuprofen given recent reassuring creatinine and acetaminophen. Patient has ice and is elevating his ankle. 4:15 PM Late during due to patient care. X-ray negative. Patient treated with a lace up ankle brace. He will follow-up with your primary care. HPI The patient presents for evaluation of an ankle injury. He is accompanied by his . This morning, he experienced a fall on a frosty deck, during which his ankle was caught underneath him and subsequently rolled and twisted to the outside. He did not sustain any head injury, lose consciousness, or experience dizziness or chest pain prior to the incident. Post-fall, he reported feeling nauseous. He has no history of previous surgeries or fractures to the same ankle. Exam General: Well-appearing in no acute distress speaking in complete sentences. Head: Normocephalic, atraumatic. Eye: Extraocular eye movements intact. No conjunctival injection. No scleral icterus. Ear, nose, mouth, throat: Grossly normal inspection. Normal voice, handling secretions normally. Neck: Trachea midline. Cardiovascular: Well-perfused distal extremities. Respiratory: Nonlabored respiration. Gastrointestinal: Nondistended abdomen. Musculoskeletal: Left lower extremity no tenderness at the at the knee nor proximal tibia. Left foot warm well-perfused intact PT and DP pulses. Cap refill less than 2 seconds in the toes. 3-5 strength left foot dorsi and plantarflexion limited by pain. Mild left medial malleoli are tenderness with swelling. No erythema. No fluctuance. Skin: Normal for age and race, grossly normal temperature and turgor. No acute rash. Neurologic: Alert and appropriate, no apparent acute deficits. Psychiatric: Mood and manner are appropriate. Grooming and personal hygiene are appropriate. Related Data Home Medications Medication Instructions Recorded Confirmed multivitamin 1 ea PO DAILY 11/07/13 01/04/25 acetaminophen 500 mg tablet 1,000 mg PO DAILY PRN 04/09/17 01/04/25 (Tylenol Extra Strength) Ibuprofen [Motrin Ib] 600 mg PO Q6H 5 days #60 tabs 09/20/17 01/04/25 losartan 100 mg tablet 100 mg PO DAILY #90 tabs 07/21/25 11/05/25 hydrochlorothiazide 12.5 mg tablet 12.5 mg PO DAILY #90 tabs 09/20/24 01/04/25 lorazepam 1 mg tablet (Ativan) 1 mg PO HS PRN sleep #60 tabs 09/20/24 01/04/25 sertraline 100 mg tablet 100 mg PO DAILY 09/29/24 01/04/25 meloxicam 15 mg tablet 15 mg PO DAILY joint pain #90 tabs 12/29/24 01/04/25 Previous Rx's Medication Instructions Recorded Ibuprofen [Motrin Ib] 600 mg PO Q6H 5 days #60 tabs 09/20/17 losartan 100 mg tablet 100 mg PO DAILY #90 tabs 09/19/24 hydrochlorothiazide 12.5 mg tablet 12.5 mg PO DAILY #90 tabs 09/20/24 lorazepam 1 mg tablet (Ativan) 1 mg PO HS PRN sleep #60 tabs 09/20/24 meloxicam 15 mg tablet 15 mg PO DAILY joint pain #90 tabs 12/29/24 Allergies Allergy/AdvReac Type Severity Reaction Status Date / Time No Known Allergies Allergy Verified 01/04/25 07:28 Medical Decision Making Quality:SDOH Health Related Social Needs: Health related social needs risk of homeless PFSH All Active Problems (Updated 01/04/25 @ 08:25 by Andriy Patel MD) Left ankle sprain (Acute) Encounter for screening colonoscopy (Acute) Right hip pain (Acute) Hyperlipidemia (Acute) Fatigue (Acute) Epidermal inclusion cyst (Acute) History of tobacco use (Chronic) Quit 2005 Low HDL (under 40) (Chronic 12/06/13) Tubular adenoma of colon (Chronic) 11/07/13 X 2 Colorectal polyps (Acute) Essential hypertension (Acute 03/08/13) Insomnia (Acute) Obesity (BMI 30.0-34.9) (Acute) Medical History Hx of essential hypertension History of tobacco use Surgical History (Updated 01/05/24 @ 14:10 by Kathy Hernandez) Hx of colonoscopy (~01/2024) 01/18 - tubular adenoma x3 2013-Tubular adenoma History of skin cancer removed from behind left ear Hx of sebaceous cyst Excision x4 S/P right knee arthroscopy Family History Mother Alcohol abuse Depression Father Diabetes Essential hypertension Neoplasm COLON Alcohol abuse Brother Diabetes Essential hypertension Grandfather Heart disease ASHD Grandfather Heart disease Grandmother Neoplasm LUNG Grandmother Neoplasm BREAST Social History (Updated 09/30/24 @ 14:47 by Eli Javier) Smoking/Tobacco Use Status: Former Tobacco Use tobacco type: smokeless tobacco Quit Date: 04/30/05 Tobacco: How many years used: 22 Smokeless tobacco user: chewing tobacco Second Hand Exposure: Yes Smoking risk assessment performed?: Yes Alcohol Intake: current Alcohol Intake frequency: a few times a week Alcohol type: beer and hard liquor Details: 2-3 times per week Drug use: Occasionally Substance use type: marijuana Counseling given: No Adopted: No Caregiver/Support person: No Household members: spouse Housing: house Number of Children: 3 number of grandchildren: 3 Communication Needs: None Education Level: college Details: associate degree Do you need help understanding health information?: Rarely 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 Pets and animals: Yes Pets and animals: dog(s) Sexually active: Yes Do you think of yourself as: straight/heterosexual Current gender identity: male What is your relationship status?: How often do you talk on the phone with friends or family?: three or more times per week How often do you get together with friends or relatives?: twice per week How often do you attend buddhist or orthodox services?: 4 or more times per year Do you belong to any clubs or organized social groups?: yes Panel score (0-1 are the most socially isolated patients): 4 What type of physical activity do you participate in: walking and other Details: [place] bike Duration: 30-45 minutes/day Frequency: 3-4 times per week Kathy/Protestant: Sikh Special kathy needs: No Agree to transfusion: Yes Seatbelt use: always Helmet use: Yes Helmet use: always Drive intox or ride w/intox spotter driver: No (never) Working smoke detector in home: Yes Carbon monox detector in home: Yes Firearms in home: Yes Firearms unloaded and locked: Yes Do you feel safe at home: Yes Do you feel safe in your relationship?: Yes Victim of physical abuse: No Victim of emotional abuse: No Victim of sexual abuse: No Would you like helpful sources: No
[2025-01-04 07:29] VITALS: BP 130/85; PULSE 86; RESP 20; TEMP 36.6; O2SAT 98
--- NOTE | 2025-01-04 07:30 | DI.RAD_ITS ---
Exam(s) XR ANKLE LT COMPLETE EXAM: XR ANKLE LT COMPLETE CLINICAL HISTORY: Left ankle pain inversion injury. TECHNIQUE: 2D digital imaging was performed. COMPARISON: No exams were available for comparison FINDINGS: 3 views Soft tissue swelling anteriorly. No evidence of fracture nor widening the ankle mortise. Talar dome appears intact. No obvious degenerative changes nor osseous lesions. Bone density normal. IMPRESSION: Anterior soft tissue swelling but no acute osseous findings in the ankle. DATA REPOSITORY: RADIATION DOSE DELIVERED:
[2025-01-04] MEDS: Ibuprofen 600 MG TAB PO (07:47)
[2025-01-04] MEDS: Acetaminophen 500 MG TAB 1000 MG PO (07:48)
--- NOTE | 2025-01-04 08:16 | DI.VRAD_ITS ---
PROCEDURE INFORMATION: Exam: XR Left Ankle Exam date and time: 01/04/2025 7:50 AM Age: 64 years old Clinical indication: Left ankle pain inversion injury TECHNIQUE: Imaging protocol: Radiologic exam of the left ankle. Views: 3 or more views. COMPARISON: No relevant prior studies available. FINDINGS: Bones/joints: No acute fracture or dislocation is identified. The ankle mortise is preserved on these nonstressed views. There are very mild degenerative changes. Soft tissues: The soft tissues are swollen anteriorly. IMPRESSION: Anterior soft tissue swelling without acute fracture or dislocation identified. Dictated and Authenticated by: Ibrahima Manjarrez MD. Orderin Amanda Ashraf MD
== END 2025-01-04 08:53 | disposition home or self-care (01) ==
PROVIDERS: Emergency Provider Emergency Medicine; PCP Nurse Practitioner Family
DX: S93.402A Sprain of unspecified ligament of left ankle, initial encounter (principal); W01.0XXA Fall on same level from slipping, tripping and stumbling without subsequent striking against object, initial encounter; Y99.0 Civilian activity done for income or pay; Z59.811 Housing instability, housed, with risk of homelessness
CPT/HCPCS: 99283 ×2; 29515; 73610